=== PATIENT | male | born 1955 | race Caucasian/White ===

== ENCOUNTER 2022-01-17 17:56 | Outpatient (CLI) | payer MEDICARE, BC | END 2022-01-17 17:57 | disposition critical access hospital (66) | LOC: EMS 17:56 | DX: M54.50 Low back pain, unspecified (principal); M62.830 Muscle spasm of back | CPT/HCPCS: A0425; A0429 ==

== ENCOUNTER 2022-01-17 18:12 | Emergency (ER) | payer MEDICARE, BC ==
[2022-01-17 18:24] VITALS: BP 131/80
[2022-01-17] MEDS ORDERED: HYDROmorphone 1 MG/ML CARPUJECT IM STA (18:33)
--- NOTE | 2022-01-17 18:36 | ED Physician Documentation ---
History of Present Illness - Stated complaint Stated Complaint: BACK PX - Chief complaint Chief Complaint: Back Pain - Additonal information Additional information: 66-year-old male presents emergency department for evaluation of acute onset low back pain. He reports that over the last 2 days he has began to have increased low back pain and spasms. He occasionally has back pain that resolves with [id number] medications. He is never had it formally evaluated. He was having some mild pain this morning that got better with a heating pad. However he said in the car to drive to [place] and when coming home found that he was so stiff he could not get out of the car. He then laid down in the driveway, EMS was summoned and the patient presents here. He has no saddle anesthesia loss of bowel or bladder function. No paresthesias. Review of Systems Constitutional: denies: Fever, Chills Nose: reports: Reviewed and negative Throat: reports: Reviewed and negative Cardiac: reports: Reviewed and negative Respiratory: reports: Reviewed and negative GI: reports: Reviewed and negative : reports: Reviewed and negative Musculoskeletal: reports: Back pain Neurologic: denies: Focal weakness, Numbness Psychiatric: reports: Reviewed and negative PD PAST MEDICAL HISTORY - Present Medications Home Medications: Ambulatory Orders Medication Instructions Recorded Confirmed oxyCODONE [Roxicodone] 5 mg PO BID PRN #10 tablet 01/17/22 predniSONE [Deltasone] 40 mg PO DAILY 4 Days #8 tablet 01/17/22 - Allergies Allergies/Adverse Reactions: Allergies Allergy/AdvReac Type Severity Reaction Status Date / Time [id number]-[id number]-[id number] Reductase Allergy Unknown Verified 01/17/22 18:23 Inhibitor PD ED PE NORMAL - General General: Alert and oriented X 3, No acute distress - HEENT HEENT: Atraumatic, Moist mucous membranes - Cardiac Cardiac: RRR, No murmur - Respiratory Respiratory: No respiratory distress, Clear bilaterally - Abdomen Abdomen: Normal bowel sounds, Soft, Non tender - Back Back: No CVA TTP, No spinal TTP, Other (Significant tenderness across the lower lumbar paraspinous muscles left greater than right. No paresthesias. Motor strength 5 of 5 bilateral lower extremities. 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 Eye Opening: Spontaneous Motor: Obeys Commands Verbal: Oriented GCS Score: 15 Results - Vitals Vitals: Vital Signs - 24 hr 01/17/22 18:14 Temperature 37 C Heart Rate 62 Respiratory 16 Rate Blood Pressure 131/80 H O2 Saturation 99 Oxygen O2 Source Room air - Rads (name of study) Lumbar CT Radiology: Final report received (No acute fracture or osseous lesion.) PD MEDICAL DECISION MAKING - ED course Complexity details: reviewed results, re-evaluated patient, considered differential, d/w patient, d/w family ED course: 66-year-old male presents to the emergency department for evaluation of acute low back pain with spasm. Some radiation of pain to the leg. No saddle anesthesia, or loss of bowel or bladder function. He had traveled in his car to [place] from his home and when he got home was unable to get out of the vehicle. Therefore he laid on the driveway and 911 was summoned. He was given a dose of Dilaudid followed by fentanyl. Once this was completed he was able to ambulate with the use of a walker. A CT of the lumbar spine was completed and did not show any acute compression fractures or osseous lesions. Patient will be discharged with a prescription for steroids, limited amount of oxycodone. He will establish with a primary care provider advised that he may benefit from physical therapy discussed that movement is important to help prevent worsening spasm and pain. Emergent and red flag return precautions were discussed Departure - Departure Disposition: 01 Home, Self Care Clinical Impression: Low back pain Qualifiers: Chronicity: acute Back pain laterality: unspecified Sciatica presence: without sciatica Qualified Code(s): M54.50 - Low back pain, unspecified Condition: Stable Record reviewed to determine appropriate education?: Yes Instructions: ED Spasm Back No Trauma Prescriptions: predniSONE [Deltasone] 40 mg PO DAILY 4 Days #8 tablet oxyCODONE [Roxicodone] 5 mg PO BID PRN #10 tablet PRN Reason: Pain Comments: Flaco you are seen today in the emergency department for acute pain in your low back that resulted in inability for you to walk due to spasm. Here in the emergency department you were given 2 injections of pain medication which seem to have made your symptoms better. Given your age we did do a CT of the lumbar spine that did not show any compression fractures or osseous lesions/signs of cancer. I suspect that this is a flare of your typical back pain that you have had in the past. In order to help manage the symptoms I would like you to fill the prescription for the steroids and begin taking every day for the following 4 days. Your first dose was given tonight in the ER. A limited prescription for oxycodone was also sent to the pharmacy. Once you are done with the steroids you can take [id number] pain medication such as ibuprofen. Between now and then you can also take Tylenol. When you are able please establish with a primary care provider. You may benefit from referral to physical therapy to help manage your back pain in the longer term. If at any point you develop numbness or tingling in your genital area, lose control of your bowel or bladder function or have sudden severe weakness in one of your legs and please return immediately to the ER for second evaluation
[2022-01-17] MEDS ORDERED: fentaNYL 100 MCG/2 ML VIAL IVP STA (19:16)
--- NOTE | 2022-01-17 20:01 | CT Report ---
PROCEDURE: LUMBAR SPINE WO INDICATIONS: low back pain; no trauma TECHNIQUE: Noncontrast 3 mm thick sections acquired from the T12 level to the sacrum. Sagittal and coronal refo rmats were constructed. For radiation dose reduction, the following was used: automated exposure co ntrol, adjustment of mA and/or kV according to patient size. COMPARISON: None. FINDINGS: Image quality: Excellent. Bones: There is normal bony alignment. No acute vertebral body compression fractures. No suspiciou s lytic or blastic bony lesions. Central spinal caliber is of normal overall caliber. No pars defec ts. Soft tissues: No retroperitoneal masses or hematomas. Visualized aorta is normal in caliber. IMPRESSION: No fracture. No acute osseous lesion. If there is continued clinical concern for pathology, then MRI should be considered for further evaluation. Reviewed by: Keyonna Villagomez MD, PhD on 01/17/2022 7:59 PM PDT Approved by: Keyonna Villagomez MD, PhD on 01/17/2022 7:59 PM PDT Station ID: [id number]
[2022-01-17] MEDS ORDERED: predniSONE 20 MG TABLET PO STA (20:12)
== END 2022-01-17 20:32 | disposition home or self-care (01) ==
LOC: ED 18:12
DX: M54.50 Low back pain, unspecified (principal)
CPT/HCPCS: 72131; 96372; 96374; 99284; J1170; J7512